=== PATIENT | female | born 1990 | race Caucasian/White ===

== ENCOUNTER 2017-06-21 20:41 | Emergency (ER) | payer SELFPAY ==
[2017-06-21 20:54] VITALS: BP 128/87
[2017-06-21] MEDS ORDERED: TYLENOL ONE (21:52)
[2017-06-21] MEDS ORDERED: TYLENOL PO ONE (21:56)
== END 2017-06-21 22:45 | disposition left against medical advice (07) ==
LOC: ED 20:41
DX: M54.2 Cervicalgia (principal); Z53.21 Procedure and treatment not carried out due to patient leaving prior to being seen by health care provider

== ENCOUNTER 2019-01-04 12:58 | Inpatient (IN) | payer SELFPAY ==
[2019-01-04] MEDS ORDERED: REGLAN IV ONE ×2 (13:56→15:57)
[2019-01-04] MEDS ORDERED: BICITRA PO ONE ×2 (13:56→15:57)
[2019-01-04] MEDS ORDERED: PEPCID IV ONE ×2 (13:56→15:57)
[2019-01-04] MEDS ORDERED: ANCEF/STERILE WATER 2 GM/20 ML 2 GM/20 ML SYRINGE IV NR ×2 (14:00→16:00)
[2019-01-04] MEDS ORDERED: LACTATED RINGERS 1,000 ML IV SCH ×3 (14:00→16:00)
[2019-01-04] MEDS ORDERED: PITOCin/NS 20 UNIT/1000ML DRIP 20 UNITS/1,000 ML BAG IV SCH ×3 (14:00→18:00)
--- NOTE | 2019-01-04 14:10 | History and Physical Report ---
History of Present Illness Date of examination: 01/04/19 Date of admission: 01/04/19 Chief complaint: Contractions, decreased movement. History of present illness: 28 year old female presents complaining of contractions since early this morning, vaginal spotting when she wipes, and decreased movement. Patient denies leaking of fluid. Patient has had a previous section in [place] (vertical skin scar) in 2012 of full term viable . Patient denies falls or abdominal trauma. Patient states pain occurs only with contractions and resolves between contractions. Patient has received care at [facility]. She brings records with her. LMP 04/07/18. EDC 01/12/19 (based on LMP and confirmed by 20 week, 3 day US). significant for the following: previous section (unknown uterine scar, C/S was done in [place] and skin scar is vertical); anemia (supplemented with iron); elevated 1 hour sugar test with one abnormal value on 3 hour OGTT. labs are as follows: O+, antibody screen negative, rubella immune, hepatitis B surface antigen negative, HIV negative, RPR nonreactive, chlamydia negative, gonorrhea negative, quad screen negative, 1 hour sugar test 168 (3 hr. OGTT: 80, 165, 164, 107), GBS negative. Past History Past Medical History: other (obesity) Past Surgical History: section FIRER LOW PRESSURE History: denies: abnormal PAP smear, chlamydia, gonorrhea, hepatitis B, hepatitis C, herpes, HIV, syphilis, trichomonas Family/Genetic History: diabetes, hypertension, other (hypercholesterolemia) Social history: , lives with family, full code. denies: smoking, alcohol abuse, prescription drug abuse, IV drug use - Obstetrical History Expected Date of Delivery: 01/12/19 Actual Gestation: 38 Week(s) 6 Day(s) : 3 Para: 1 Hx # Term Pregnancies: 1 Number of Pregnancies: 0 Spontaneous Abortions: 1 Induced : 0 Number of Living Children: 1 Medications and Allergies Allergies Allergy/AdvReac Type Severity Reaction Status Date / Time No Known Allergies Allergy Verified 06/21/17 22:09 Active Meds: Active Medications Lactated Ringer's (Lactated Ringers) 1,000 mls @ 999 mls/hr IV DIRECT DELVIS Last Admin: 01/04/19 13:30 Dose: 999 mls/hr Documented by: Oxytocin/Sodium Chloride (Pitocin/Ns 20 Unit/1000ml Drip) 20 units in 1,000 mls @ 0 mls/hr IV TITR DELVIS Lactated Ringer's (Lactated Ringers) 1,000 mls @ 2,250 mls/hr IV PREOP DELVIS Stop: 01/05/19 14:27 Cefazolin Sodium (Ancef/Sterile Water 2 Gm/20 Ml) 2 gm in 20 mls @ 80 mls/hr IV PREOP NR; Protocol Stop: 01/05/19 13:59 Review of Systems All systems: negative (contractions, vaginal spotting, decreased movement) - Vital Signs Vital signs: Vital Signs Temp Pulse Resp BP 98.7 F 94 H 18 157/96 01/04/19 13:08 01/04/19 13:08 01/04/19 13:08 01/04/19 13:08 Temp Pulse Resp BP Pulse Ox 98.7 F 94 H 18 157/96 01/04/19 13:08 01/04/19 13:13 01/04/19 13:08 01/04/19 13:13 - Physical Exam Cardiovascular: Regular rate, Normal S1, Normal S2 Lungs: Positive: Clear to auscultation Abdomen: Positive: normal appearance, soft, other (moderate contractions palpated). Negative: distention, tenderness, guarding, rigidity Genitourinary (Female): Positive: normal external genitalia Vagina: Positive: normal moisture Cervix: Positive: other (Exam by RN upon arrival: FT/50/-3) Uterus: Positive: enlarged Extremities: Positive: normal. Negative: tenderness, edema - Obstetrical FHR: category 1 Uterine Contraction Monitor Mode: External Cervical Dilatation: 0.5 (Exam by RN upon pt.'s arrival) Cervical Effacement Percentage: 50 station: -3 Uterine Contraction Pattern: Regular Uterine Contraction Intensity: Moderate Results All other labs normal. Assessment and Plan A: at 38 weeks, 6 days gestation. Regular contractions. Previous section (unknown scar, skin scar is vertical). Decreased movement. Elevated blood pressure. Obesity. P: Admit. Admission labs/PIH labs. Continuous EFM. Consulted with Dr. Gaytan re: this patient, her complaints of vaginal spotting, contractions and decreased movement, unknown scar from previous section. Dr. Gaytan states to admit patient and he will deliver baby by section today. Patient and nurses notified that Dr. Gaytan plans to deliver baby by section.
[2019-01-04 14:58] LABS: Basophils % (Auto) 0.5 % (0.0-1.8); Eosinophils # (Auto) 0.1 K/mm3 (0.0-0.4); Eosinophils % (Auto) 0.6 % (0.0-4.3); Hematocrit 33.7 % (30.3-42.9); Hemoglobin 11.4 gm/dl (10.1-14.3); Lymphocytes # (Auto) 1.5 K/mm3 (1.2-5.4); Lymphocytes % (Auto) 17.3 % (13.4-35.0); Mean Corpuscular HGB Conc 34 % (30-34); Mean Corpuscular Volume 84 fl (79-97); Monocytes # (Auto) 0.5 K/mm3 (0.0-0.8); Monocytes % (Auto) 5.2 % (0.0-7.3); Platelet Count 291 K/mm3 (140-440); Red Blood Count 4.01 M/mm3 (3.65-5.03); Red Cell Distribution Width 14.6 % (13.2-15.2)
[2019-01-04 15:07] LABS: Alanine Aminotransferase 10 units/L (7-56); Albumin 3.1 g/dL (3.9-5); BUN/Creatinine Ratio 16; Blood Urea Nitrogen 8 mg/dL (7-17); Hemolysis Index 1; Uric Acid 3.5 mg/dL (3.5-7.6)
[2019-01-04] MEDS ORDERED: PHENERGAN PR PRN (15:22)
[2019-01-04] MEDS ORDERED: NARCAN 0.4 MG/1 ML IV PRN ×2 (15:22→17:24)
[2019-01-04] MEDS ORDERED: DILAUDID IV PRN ×2 (15:22)
[2019-01-04] MEDS ORDERED: PHENERGAN PO PRN (15:22)
[2019-01-04] MEDS ORDERED: ZOFRAN IV PRN ×2 (15:22→17:24)
--- NOTE | 2019-01-04 15:23 | Anesthesia Consultation ---
Anesthesia Consult and Med Hx Date of service: 01/04/19 - Airway Anesthetic Teeth Evaluation: Good ROM Head & Neck: Adequate Mental/Hyoid Distance: Adequate Mallampati Class: Class II Intubation Access Assessment: Good - Pulmonary Exam CTA: Yes - Cardiac Exam Cardiac Exam: RRR - Pre-Operative Health Status ASA Pre-Surgery Classification: ASA2, Emergency Proposed Anesthetic Plan: Spinal - Pulmonary Hx Asthma: No - Cardiovascular System Hx Hypertension: No - Central Nervous System Hx Seizures: No Hx Psychiatric Problems: No - Endocrine Hx Renal Disease: No Hx Hypothyroidism: No Hx Hyperthyroidism: No - Hematic Hx Anemia: No Hx Sickle Cell Disease: No - Other Systems Hx Alcohol Use: No
--- NOTE | 2019-01-04 15:24 | Anesthesia Day of Surgery ---
Anesthesia Day of Surgery - Day of Surgery Patient Examined: Yes Patient H&P Reviewed: Yes Patient is NPO: No (10 am full meal)
[2019-01-04] MEDS ORDERED: ZOFRAN ONE (15:57)
[2019-01-04] MEDS ORDERED: DEXMEDETOMIDINE IV ONE (15:57)
[2019-01-04] MEDS ORDERED: fentaNYL-BUPIV 2 MCG/ML-0.125% 200 MCG/100 ML BAG EPIDURAL SCH (16:00)
[2019-01-04] MEDS ORDERED: SODIUM CHLORIDE FLUSH SYRINGE 10 ML IV NR ×2 (16:00→18:00)
[2019-01-04] MEDS ORDERED: PHENYLEPHRINE/NS Syringe 1,000 MCG/10 ML IV ONE (16:35)
[2019-01-04] MEDS ORDERED: TORADOL ONE (16:43)
[2019-01-04] MEDS ORDERED: BENADRYL ONE (16:43)
[2019-01-04] MEDS ORDERED: DILAUDID ONE (16:52)
[2019-01-04] MEDS ORDERED: NACL 0.9% IR ONE (17:24)
[2019-01-04] MEDS ORDERED: TUCKS PAD TP PRN (17:24)
[2019-01-04] MEDS ORDERED: LANSINOH TP PRN (17:24)
[2019-01-04] MEDS ORDERED: WATER FOR IRRIG STERILE IR ONE (17:24)
[2019-01-04] MEDS ORDERED: TYLENOL PO PRN (17:24)
[2019-01-04] MEDS ORDERED: MORPHINE IV PRN (17:24)
--- NOTE | 2019-01-04 17:34 | Operative Report ---
Operative Report Operative Report: Date of surgery: 01/04/2019 Preoperative diagnoses: Term , previous section, early labor, decreased movements Postoperative diagnoses: The same. Plus Pea soup meconium Operation: Lower segment transverse delivery Surgeon:Jeanine Gaytan MD Livestock Rancher: Gui Hendricks CRNA Anesthesia: Spinal block Estimated blood loss: 500 mL Complications: None Findings: There was a live baby girl in cephalic presentation with thick pea soup meconium stained amniotic fluid, scores were 8 and 9. Baby weighed 8 lbs. 9 oz. There were no adhesions seen within the lower abdomen. Procedure in detail: The patient was taken to the operating room and given a spinal block. Patient was placed in the straight supine position and a Hernandes catheter was inserted. The patient was prepped in the abdomen. The drapes were placed. A timeout was done. With the go ahead from the metal casting trades worker, a sub-umbilical midline incision was made over a previously existing scar. This incision was carried across the subcutaneous layer to the fascia which was also divided longitudinally. The recti abdominis muscle flaps were stripped from the fascia using a combination of blunt and sharp dissections. The muscles were in the midline to gain access to the anterior parietal peritoneum which was divided after excluding any underlying viscera. The access to the peritoneal cavity was then widened by manual stretching. The bladder blade was applied. The utero vesicle peritoneal flap was divided transversely allowing the bladder to be displaced caudally. The uterine incision was placed in the lower segment transversely. The uterine incision was carried to the decidual layer. The uterine incision was extended on both sides using the bandage scissors. The amniotic sac was ruptured with clear fluid. The head was lifted out of the false maternal pelvis and delivered through the incision using fundal pressure. The airways were bulb suctioned beginning with the mouth. Continuing fundal pressure combined with traction on the mandibular processes of the jaw delivered the rest of the baby. The umbilical cord was double clamped and divided. The baby was carefully transferred to the pediatric team. The placenta was manually removed from the uterine cavity. The uterine cavity was explored and was empty of any placental remnants. The uterine incision was repaired in 2 layers with #1 Vicryl. The surgical line on the uterus was hemostatic. Blood and clots were cleared from the peritoneal cavity. The anterior parietal peritoneum was repaired with #1 Vicryl. The fascia was repaired with #1 Vicryl. The subcutaneous layer was made hemostatic using the Bovie before the skin was closed subcuticularly with 4-0 Vicryl. There were no complications. The estimated blood loss was 500 mL. All sponges and instrument counts were correct. Patient was safely transferred to the recovery room.
[2019-01-04] MEDS: TORADOL IV PRN (20:38)
[2019-01-04 20:42] LABS: Bilirubin,Urine NEG (Negative); Blood,Urine SM (Negative); Color,Urine Yellow (Yellow); Mucus,Urine FEW /HPF; Urobilinogen,Urine < 2.0 mg/dL (<2.0)
[2019-01-04 21:04] LABS: Amphetamine Screen,Urine PRESUMPTIVE NEGATIVE; Benzodiazepines Screen,Urine PRESUMPTIVE NEGATIVE; Cannabinoid Screen,Urine PRESUMPTIVE NEGATIVE; Cocaine Screen,Urine PRESUMPTIVE NEGATIVE; Methadone Screen,Urine PRESUMPTIVE NEGATIVE; Opiate Screen,Urine PRESUMPTIVE NEGATIVE
[2019-01-04] MEDS: ANCEF/NS 1 GM/50 ML 1 GM/50 ML BAG IV SCH (22:15)
[2019-01-05] MEDS: TORADOL IV PRN ×2 (06:40→17:50)
[2019-01-05] MEDS: ANCEF/NS 1 GM/50 ML 1 GM/50 ML BAG IV SCH (06:51)
--- NOTE | 2019-01-05 09:58 | Progress Note ---
Assessment and Plan - Patient Problems (1) S/P repeat low transverse Current Visit: Yes Status: Acute Plan to address problem: POD 1 - poor pain control Continue routine postop orders Discontinue continuous IVF Use of incentive spirometer and ambulation encouraged, as tolerated Abdominal binder ordered Anticipate discharge in 24 to 48 hours Subjective - Subjective Date of service: 01/05/19 Principal diagnosis: POD #1; s/p Repeat LTCS Interval history: see H&P and Operative Report Patient reports: appetite normal, voiding normally, flatus, pain poorly controlled, ambulating normally, other (reports right rib pain upon taking deep breaths; has not used incentive spirometer since she was transfered to ), no dizzy ambulation : doing well Objective - Vital Signs Latest vital signs: Vital Signs Temp Pulse Resp BP BP Pulse Ox 01/05/19 07:22 98.7 F 82 18 102/67 01/05/19 04:43 98.2 F 94 H 20 95/61 96 01/04/19 23:35 98.2 F 97 H 20 98/69 97 01/04/19 19:45 98.3 F 78 16 119/77 99 01/04/19 16:03 96 H 98 01/04/19 15:58 99 H 98 01/04/19 15:53 97 H 98 01/04/19 15:48 93 H 97 01/04/19 15:43 93 H 97 01/04/19 15:38 99 H 100 01/04/19 15:33 90 100 01/04/19 15:28 92 H 100 01/04/19 15:21 93 H 100 01/04/19 14:56 90 150/85 01/04/19 13:13 94 H 157/96 01/04/19 13:08 98.7 F 94 H 18 157/96 Intake and Output 01/04/19 01/05/19 01/05/19 23:59 07:59 15:59 Intake Total 50 840 Output Total 600 420 Balance 50 240 -420 Intake: IV 50 ANCEF/NS 1 GM/50 ML 1 gm 50 In 50 ml @ 100 mls/hr IV Q8H [facility] Rx#:[id number] Oral 840 Output: Urine 600 420 Indwelling Catheter 600 420 Other: Total, Intake Amount 480 Total, Output Amount 600 420 Estimated Blood Loss 500 - Exam Cardiovascular: Present: Regular rate Lungs: Present: Clear to auscultation Abdomen: Present: normal appearance, soft Vulva: both: normal Uterus: Present: normal, firm, fundal height at umbilicus Extremities: Present: normal Incision: Present: normal, dry, intact, dressed Comments: scant lochia - Labs Labs: Abnormal lab results 01/04/19 01/04/19 01/04/19 Range/Units 14:25 14:25 20:30 Seg Neutrophils % 76.4 H (40.0-70.0) % Carbon Dioxide 19 L (22-30) mmol/L Creatinine 0.5 L (0.7-1.2) mg/dL Alkaline Phosphatase 138 H (35-129) units/L Albumin 3.1 L (3.9-5) g/dL Urine WBC (Auto) 27.0 H (0.0-6.0) /HPF
[2019-01-05] MEDS: PRENATAL VITAMIN PO SCH (10:03)
[2019-01-05] MEDS: FEOSOL PO SCH (10:03)
[2019-01-05] MEDS: NORCO 5/325 PO PRN ×3 (10:03→21:44)
[2019-01-05 10:18] LABS: Hematocrit 33.9 % (30.3-42.9); Hemoglobin 11.2 gm/dl (10.1-14.3)
[2019-01-06] MEDS: TORADOL IV PRN (02:44)
[2019-01-06] MEDS: IBUPROFEN PO PRN ×3 (02:47→21:06)
[2019-01-06] MEDS ORDERED: BOOSTRIX IM ONE (06:00)
--- NOTE | 2019-01-06 10:13 | Progress Note ---
Assessment and Plan - Patient Problems (1) S/P repeat low transverse Current Visit: Yes Status: Acute Plan to address problem: Continue routine PP orders Keep incision dry and intact Anticipate d/c home in 24 hrs Subjective - Subjective Date of service: 01/06/19 Principal diagnosis: POD #2; s/p Repeat LTCS Interval history: See admission H & P; OB operative summary and PP progress notes Patient reports: appetite normal, voiding normally, pain well controlled (with medications), flatus, ambulating normally, no bowel movement [place]: doing well, bottle feeding Objective - Vital Signs Latest vital signs: Vital Signs Temp Pulse Resp BP BP Pulse Ox 01/06/19 08:28 98.0 F 77 16 114/79 97 01/06/19 00:51 98.2 F 85 18 121/77 97 01/05/19 16:13 98.9 F 79 18 121/75 01/05/19 12:28 98.2 F 82 18 115/73 Intake and Output 01/05/19 01/06/19 01/06/19 23:59 07:59 15:59 Intake Total 840 480 Balance 840 480 Intake: Oral 480 Intake, Free Water 360 480 Other: Total, Intake Amount 480 # Voids Void 2 1 - Exam Breasts: Present: normal Cardiovascular: Present: Normal S1 Lungs: Present: Normal air movement Abdomen: Present: soft, tenderness Uterus: Present: firm, fundal height below umbilicus (U-1) Extremities: Present: normal Deep Tendon Reflex Grade: Normal +2 Incision: Present: dressed (no shadow drainage or bleeding noted)
[2019-01-06] MEDS: FEOSOL PO SCH (10:40)
[2019-01-06] MEDS: PRENATAL VITAMIN PO SCH (10:40)
[2019-01-06] MEDS: NORCO 5/325 PO PRN ×2 (11:22→23:41)
[2019-01-07] MEDS: IBUPROFEN PO PRN ×2 (05:56→14:13)
[2019-01-07] MEDS: FEOSOL PO SCH (09:54)
[2019-01-07] MEDS: PRENATAL VITAMIN PO SCH (09:54)
--- NOTE | 2019-01-07 10:47 | Progress Note ---
Assessment and Plan A: POD #3 Stable P: Follow Routine PostOp Orders D/C home today RTO in One Week Subjective - Subjective Date of service: 01/07/19 Principal diagnosis: POD #2; s/p Repeat LTCS Patient reports: appetite normal, voiding normally, pain well controlled, flatus, bowel movement, ambulating normally : doing well, bottle feeding Objective - Vital Signs Latest vital signs: Vital Signs Temp Pulse Resp BP Pulse Ox 01/07/19 08:19 97.8 F 78 18 110/69 96 01/07/19 05:56 20 01/07/19 01:01 98.1 F 79 20 103/64 96 01/06/19 23:41 20 01/06/19 21:06 20 01/06/19 16:51 97.7 F 73 16 112/80 97 01/06/19 12:39 18 Intake and Output 01/06/19 01/07/19 01/07/19 22:59 06:59 14:59 Intake Total 360 Balance 360 Intake: Intake, Free Water 360 Other: # Voids Void 3 2 - Exam Breasts: Present: normal Cardiovascular: Present: Regular rate Lungs: Present: Clear to auscultation, Normal air movement Abdomen: Present: normal appearance, soft, normal bowel sounds Uterus: Present: normal, firm, fundal height at umbilicus Extremities: Present: normal Incision: Present: normal, dry, intact, other (verical)
--- NOTE | 2019-01-07 10:48 | Discharge Summary ---
Providers - Providers Date of Admission: 01/04/19 15:47 Date of discharge: 01/07/19 Attending physician: MAYCO COTTO MD Primary care physician: PHYSICS TUTOR Hospitalization Reason for admission: section Delivery: Procedure: vertical Episiotomy: none Laceration: none Incision: normal, dry, intact Other procedures: none complications: none Discharge diagnosis: IUP at term delivered baby: female Condition at discharge: Good Disposition: DC-01 TO HOME OR SELFCARE Plan - Discharge Medications Prescriptions: HYDROcodone/APAP 5-325 [[place] 5/325] 1 - 2 each PO Q4HR PRN #30 tablet PRN Reason: Pain - Provider Discharge Summary Activity: routine, no sex for 6 weeks, no heavy lifting 4 weeks, no strenuous exercise Diet: routine Instructions: routine Additional instructions: [] Smoking cessation referral if applicable(refer to patient education folder for contact #) [] Refer to [facility] Booklet Call your doctor immediately for: * Fever > 100.5 * Heavy vaginal bleeding ( >1 pad per hour) * Severe persistent headache * Shortness of breath * Reddened, hot, painful area to leg or breast * Drainage or odor from incision. * Keep incision clean and dry at all times and follow doctor's instructions regarding bathing/showering - Follow up plan Follow up: PRIMARY CAREMD [Primary Care Provider] - 7 Days
[2019-01-07 15:11] VITALS: BP 124/76
== END 2019-01-07 14:50 | disposition home or self-care (01) | DRG 788 ==
LOC: TRG 12:58 → APU 15:47 → OB 19:45
PROVIDERS: ADMIT Obstetrics & Gynecology; ATTEND Obstetrics & Gynecology
PROC: 10D00Z1 Extraction of Products of Conception, Low, Open Approach (ICD-10-PCS; principal; 2019-01-04)
PROC: 3E0234Z Introduction of Serum, Toxoid and Vaccine into Muscle, Percutaneous Approach (ICD-10-PCS; 2019-01-06)
DX: O34.211 Maternal care for low transverse scar from previous cesarean delivery (principal); O99.214 Obesity complicating childbirth; O36.8130 Decreased fetal movements, third trimester, not applicable or unspecified; P03.82 Meconium passage during delivery; Z3A.38 38 weeks gestation of pregnancy; Z37.0 Single live birth; Z82.49 Family history of ischemic heart disease and other diseases of the circulatory system; Z83.3 Family history of diabetes mellitus; Z23 Encounter for immunization
CPT/HCPCS: 36415; 80053; 80307; 81001; 83615; 84550; 85014; 85018; 85025; 86850; 86900; 86901; 87086; 88307; 90715; G0378; J0690; J1170; J1200; J1885; J2270; J2370; J2405; J2590; J2765; J3490; J7120

== ENCOUNTER 2021-01-28 09:43 | Outpatient (CLI) | payer OTHER ==
[2021-01-28 10:13] VITALS: BP 106/65
[2021-01-28] MEDS ORDERED: LACTATED RINGERS 500 ML IV ONE (11:53)
--- NOTE | 2021-01-28 12:10 | Ultrasound Report ---
ULTRASOUND OBSTETRIC LIMITED ULTRASOUND BIOPHYSICAL PROFILE INDICATION / CLINICAL INFORMATION: DECREASED MOVEMENT - BPP. Clinical Gestational Age (GA) in weeks, days: 31, 3 TECHNIQUE: Transabdominal. COMPARISON: None available. FINDINGS: BREATHING MOVEMENT = 2 GROSS BODY MOVEMENT = 2 TONE = 2 QUALITATIVE AMNIOTIC FLUID VOLUME = 2 TOTAL BIOPHYSICAL SCORE = 8/8 HEART RATE (beats per minute): 145 AMNIOTIC FLUID INDEX (cm) = 19.4 (normal = 7-24 cm) PRESENTATION: Cephalic. ADDITIONAL FINDINGS: None. IMPRESSION: 1. Biophysical Score = 8/8 Signer Name: Allan Nelson DO Signed: 01/28/2021 12:05 PM Workstation Name: [id number]
== END 2021-01-28 12:00 | disposition home or self-care (01) ==
LOC: TRG 09:43 → APU 09:46 → TRG 12:00
PROVIDERS: ATTEND Obstetrics & Gynecology
DX: Z34.93 Encounter for supervision of normal pregnancy, unspecified, third trimester (principal); Z3A.31 31 weeks gestation of pregnancy
CPT/HCPCS: 59025; 76815; 76819

== ENCOUNTER 2021-03-29 10:48 | Inpatient (IN) | payer OTHER ==
[2021-03-29 11:52] LABS: Bacteria,Urine 1+ /HPF (Negative); Bilirubin,Urine NEG (Negative); Blood,Urine NEG (Negative); Color,Urine Amber (Yellow); Mucus,Urine FEW /HPF; Urobilinogen,Urine < 2.0 mg/dL (<2.0)
[2021-03-29 12:18] LABS: Hematocrit 37.1 % (30.3-42.9); Hemoglobin 12.1 gm/dl (10.1-14.3); Mean Corpuscular HGB Conc 33 % (30-34); Mean Corpuscular Volume 84 fl (79-97); Red Blood Count 4.42 M/mm3 (3.65-5.03); Red Cell Distribution Width 15.4 % (13.2-15.2)
[2021-03-29 12:20] LABS: Platelet Count 181 K/mm3 (140-440)
[2021-03-29 12:40] LABS: Alanine Aminotransferase 10 units/L (7-56); Uric Acid 4.9 mg/dL (3.5-7.6)
--- NOTE | 2021-03-29 14:15 | History and Physical Report ---
History of Present Illness Date of examination: 03/29/21 Date of admission: 03/29/21 10:48 Chief complaint: sent from [facility] with headache and elevated BP History of present illness: at 39.0 wks by EDC 04/05/21; care at [facility] and sent here with headache and proteinuria and elevated BP. Pt admits to headache, movement. Denies LOF, VB and contractions. Pt desires midline incision repeated for this delivery. labs with O positive, neg screen, RPR non-reactive, HepBsAg neg, Rubella immune, Ucx with Ecoli treated this preg in August 2020, HIV neg and GBS+. Abnormal 1hrgtt and normal 3hrgtt. Past History Past Medical History: other (morbid obesity) Past Surgical History: section (x2), other (recurrent UTI treated once this preg and now with positive nitrites) Social history: no significant social history - Obstetrical History : 4 Medications and Allergies Allergies Allergy/AdvReac Type Severity Reaction Status Date / Time No Known Allergies Allergy Verified 06/21/17 22:09 Home Medications Medication Instructions Recorded Confirmed Last Taken Type HYDROcodone/APAP 5-325 [[place] 1 - 2 each PO Q4HR PRN #30 tablet 01/04/19 Unknown Rx 5/325] Review of Systems All systems: negative (neg) - Vital Signs Vital signs: Vital Signs Pulse BP 96 H 130/89 03/29/21 11:16 03/29/21 11:16 Temp Pulse Resp BP Pulse Ox 98.2 F 94 H 20 129/75 98 03/29/21 11:28 03/29/21 14:12 03/29/21 11:28 03/29/21 14:01 03/29/21 14:12 - Physical Exam Breasts: Positive: deferred Cardiovascular: Normal S1 Lungs: Positive: Normal air movement Abdomen: Positive: soft (obese, non-tender) Genitourinary (Female): Positive: normal external genitalia Vulva: both: normal Vagina: Positive: normal moisture - Obstetrical FHR: category 1 Uterine Contraction Monitor Mode: External Cervical Dilatation: 50 station: -4 Uterine Contraction Pattern: Irregular Uterine Contraction Intensity: Mild Results Result Diagrams: 03/29/21 Unknown 03/29/21 11:23 Abnormal lab results 03/29/21 03/29/21 03/29/21 Range/Units 11:23 Unknown Unknown MCH 27 L (28-32) pg RDW 15.4 H (13.2-15.2) % Creatinine 0.4 L (0.6-1.2) mg/dL Lactate Dehydrogenase 287 H (91-180) units/L Urine WBC (Auto) 7.0 H (0.0-6.0) /HPF All other labs normal. Assessment and Plan Term IUP at 39wks with previous c/section x2, gestational HTN, UTI currently 1. Admit for repeat section 2. PIH labs seen 3. Will treat UTI post op 4. Discussed the risks, benefits and alternatives of section and wound dehiscence with midline. pt told that I recommend pfannenstiel approach and she agrees. All questions encouraged and answered
[2021-03-29] MEDS ORDERED: OXYTOCIN DRIP 30 UNITS/500 ML BAG IV SCH (15:00)
[2021-03-29] MEDS ORDERED: FAMOTIDINE 20 MG/2 ML INJ IV ONE (15:13)
[2021-03-29] MEDS ORDERED: METOCLOPRAMIDE 10 MG/2 ML INJ IV ONE (15:13)
[2021-03-29] MEDS ORDERED: BICITRA ORAL LIQD 30ML PO ONE (15:13)
[2021-03-29] MEDS ORDERED: ACETAMINOPHEN 500 MG TAB ONE (21:32)
--- NOTE | 2021-03-29 21:42 | Event Note ---
Date: 03/29/21 LATE ENTRY: pt no longer has headache and is hungry. Will allow to eat and partner brought pt food with OR not available at this time and 2 more cases ahead of her. Pt already has c/section scheduled for tomorrow and is ok waiting until that time. FHR category I, pelvic with cervix close and occasional irregular contractions. Sign out given to Dr. Bowles at 8pm. All questions encourage and answered
[2021-03-29 22:26] LABS: Creatinine,Urine 241.5 mg/dL (0.1-20.0)
[2021-03-30] MEDS: ceFAZolin/NS 1 GM/50 ML 1 GM/50 ML BAG IV SCH ×2 (03:14→05:15)
[2021-03-30] MEDS ORDERED: ceFAZolin/Water 2 GM/20 ML 2 GM/20 ML SYRINGE IV ONE (07:27)
[2021-03-30] MEDS ORDERED: FAMOTIDINE 20 MG/2 ML INJ IV ONE (07:27)
[2021-03-30] MEDS ORDERED: BICITRA ORAL LIQD 30ML ONE (07:28)
[2021-03-30] MEDS ORDERED: METOCLOPRAMIDE 10 MG/2 ML INJ ONE (07:28)
--- NOTE | 2021-03-30 07:33 | Anesthesia Day of Surgery ---
Anesthesia Day of Surgery - Day of Surgery Patient Examined: Yes Patient H&P Reviewed: Yes Patient is NPO: Yes Beta Blockers: No Cardiac Clearance: No Pulmonary Clearance: No Gopi's Test: Negative
--- NOTE | 2021-03-30 07:37 | Anesthesia Consultation ---
Anesthesia Consult and Med Hx Date of service: 03/30/21 - Airway Anesthetic Teeth Evaluation: Poor, Caps ROM Head & Neck: Adequate Mental/Hyoid Distance: Adequate Mallampati Class: Class II Intubation Access Assessment: Probably Good - Pulmonary Exam CTA: Yes - Cardiac Exam Cardiac Exam: RRR - Pre-Operative Health Status ASA Pre-Surgery Classification: ASA3 Proposed Anesthetic Plan: Epidural, Spinal - Pre-Anesthesia Comment Pre-Anesthesia Comments: csection x2 No Anesthesia Complications - Pulmonary Hx Smoking: No (Former smoker) Hx Asthma: No Hx Respiratory Symptoms: No SOB: No COPD: No Home Oxygen Therapy: No Hx Pneumonia: No Hx Sleep Apnea: No - Cardiovascular System Hx Hypertension: Yes Hx Coronary Artery Disease: No Hx Heart Attack/AMI: No Hx Angina: No Hx Percutaneous Transluminal Coronary Angioplasty (PTCA): No Hx Cardia Arrhythmia: No Hx Pacemaker: No Hx Internal Defibrillator: No Hx Valvular Heart Disease: No Hx Heart Murmur: No Hx Peripheral Vascular Disease: No - Central Nervous System Hx Neuromuscular Disorder: No Hx Seizures: No CVA: No Hx Back Pain: Yes Hx Psychiatric Problems: No - Gastrointestinal Hx Ulcer: No Hx Gastroesophageal Reflux Disease: No - Endocrine Hx Renal Disease: No Hx End Stage Renal Disease: No Hx Cirrhosis: No Hx Liver Disease: No Hx Insulin Dependent Diabetes: No Hx Non-Insulin Dependent Diabetes: No Hx Thyroid Disease: No Hx Hypothyroidism: No Hx Hyperthyroidism: No - Hematic Hx Anemia: No Hx Sickle Cell Disease: No - Other Systems Hx Alcohol Use: No Hx Substance Use: No Hx Cancer: No Hx Obesity: Yes
[2021-03-30] MEDS: LACTATED RINGERS 1,000 ML IV SCH ×2 (07:40→08:21)
[2021-03-30] MEDS ORDERED: LIDOCAINE MPF (2%) 20 MG/1 ML VIAL 5 ML ONE (08:32)
[2021-03-30] MEDS ORDERED: ONDANSETRON 4 MG/2 ML INJ ONE ×2 (08:32)
[2021-03-30] MEDS ORDERED: BUPIVACAINE /DEX-WATER 0.75% (2 ML) AMPULE INFILTRATI ONE (08:48)
[2021-03-30] MEDS ORDERED: LACTATED RINGERS 1,000 ML ONE ×2 (09:12→10:47)
[2021-03-30] MEDS ORDERED: dexAMETHasone 20 MG/5 ML VIAL ONE (09:53)
[2021-03-30] MEDS ORDERED: BUPIVACAINE/PF (0.25%) 2.5 MG/ML 30 ML VIAL INFILTRATI ONE ×2 (09:53)
[2021-03-30] MEDS ORDERED: BUPIVACAINE/PF (0.5%) 5 MG/1 ML 30 ML VIAL INFILTRATI ONE (10:30)
[2021-03-30] MEDS ORDERED: KETOROLAC 30 MG/1 ML INJ ONE (10:46)
--- NOTE | 2021-03-30 11:35 | Procedure Note ---
OB Delivery Note - Delivery Date of Delivery: 03/30/21 Surgeon: DIANE ADORNO Estimated blood loss: other (506cc) - Section Preop diagnosis: repeat , other (Gestational HTN, morbid obesity, term ) Postop diagnosis: same section procedure: repeat low transverse Disposition: floor Complications: none Narrative: Date: 03/30/21 Surgeon: Diane Adorno MD Preop Dx: IUP at 39.1wks, previous midline scars for c/section x2; Gestational HTN; Morbid obesity Postop Dx: same adn pt in labor with thin lower uterine segment Procedure : Repeat Low Transverse section Anesthesia: Spinal Intake: 2500cc crystalloid Output: 250cc EBL: 506cc clear After the risks, benefits and alternatives of procedure discussed, patient signed consents and was taken to the operating room. Pt was given epidural anesthesia. After same was adequate, patient was prepped and draped in the usual sterile fashion. Hernandes catheter in place and draining concentrated scant urine that cleared at the end of surgery most likely due to dehydration. Pt was given prophylactic antibiotic per protocol and time out was done Pfannenstiel skin incision was made and taken sharply to the fascia and the incision extended using electrocautery. Superior edge of the fascia was grasped with mendel clamps and the rectus muscle using blunt dissection and also using electrocautery. Lower portion of the fascia also with electrocautery. Rectus muscle in the midline and Peritoneal cavity entered sharply, and then lysis of intraabdominal adhesions and then extended with good visualization of the bladder. Laci retractor placed without difficulty. The bladder flap was created sharply using metzenbaum scissors. Lower uterine segment very thin and laboring then entered transversely and amniotic sac entered using allys clamps. Uterine incision extended using band age scissors. delivered, bulb suctioned, cord clamped and baby handed to waiting pediatricians. Placenta then delivered completely and uterine cavity cleared of all clots and debri. The uterus was not exteriorized and closed in 2 layers using 0-monocryl suture in a running locked fashion and then an additional figure of 8 sutures for imbrication. Surgicel powder used and Excellent hemostasis noted. The gutters were cleared of clots and debri and anterior peritoneum closed with the rectus muscle using 0-vicryl suture in a continous fashion. Rectus fascia closed with 0-vicryl suture in a running fashion and subcutaneous tissue copiously irrigated with normal saline and re-approximated using 3-0 vicryl suture in a subcutaneous fashion. Excellent hemostasis remains. The skin was closed with 4-0 monocryl suture and steristrips and 2 areas with dermabond and then with pressure dressing. Sponge, lap, instrument and needle counts x2 were normal. Patient tolerated the procedure well and was taken to recovery room stable. Findings: Viable male , APGARS 9/9 and weight 4250g. Normal uterus, Left tube with small cyst of morgani, normal right tube and bilateral ovaries. - Infant A at 1 minute: 9 at 5 minutes: 9 Gender: Male (wt 4250g; clear amniotic fluid)
--- NOTE | 2021-03-30 11:44 | Progress Note ---
Spinal Anesthesia Block - Spinal Anesthesia Block Start Time: 08:39 Stop Time: 08:45 Performed by:: JU YOST Procedure: Patient placed in sitting position with monitors applied. Timeout performed immediately before start of procedure. Prep/drape in usual sterile fashion. Skin localized 3 mL 1% lidocaine at L[3]-L[4] interspace. 17-gauge Touhy epidural needle advanced to MIGN[place] with saline at [8] cm. No blood/CSF noted via epidural needle. 26g spinal needle advanced into intrathecal space until clear, free flowing CSF noted. 1.4ml 0.75% hyperbaric bupivacaine + 10mcg Precedex injected into intrathecal space. Spinal needle removed and epidural catheter advanced to [12] cm. Negative aspiration for blood and CSF via catheter, negative response to test dose 3 ml 1.5% lidocaine w/ epi. Sterile dressing applied followed by tape reinforcement. Patient tolerated procedure well. No immediate complications noted.
--- NOTE | 2021-03-30 11:45 | Progress Note ---
Regional Anesthesia Block - Regional Anesthesia Block Start Time: :23 Stop Time: :30 Performed By:: JU YOST Procedure: Patient consented for TAP block for post surgical pain management. Patient identified, monitors placed, and time out performed. TAP identified bilaterally via ultrasound. Skin prepped bilaterally with [chlorhexidine] and [22g stimuplex] needle advanced to the TAP. [Marcaine 0.25% 30ml] injected under ultrasound guidance on the [left] side. [Marcaine 0.25% 30ml] injected under ultrasound guidance on the [right] side. Negative aspiration every 5mL, No change in heart rate or rhythm. Patient tolerated the procedure well. No apparent complications seen.
[2021-03-30] MEDS ORDERED: miSOPROStol 200 MCG TAB PR ONE (13:00)
[2021-03-30] MEDS ORDERED: NALOXONE 0.4 MG/1 ML INJ IV PRN (14:21)
[2021-03-30] MEDS ORDERED: MORPHINE 4 MG/1 ML INJ IV PRN (14:21)
[2021-03-30] MEDS ORDERED: OXYTOCIN DRIP 30 UNITS/500 ML BAG IV SCH (14:21)
[2021-03-30] MEDS ORDERED: MAGNESIUM HYDROXIDE (MOM) ORAL LIQD UDC PO PRN (14:21)
[2021-03-30] MEDS ORDERED: IBUPROFEN 600 MG TAB PO PRN (14:21)
[2021-03-30] MEDS ORDERED: ACETAMINOPHEN 325 MG TAB PO PRN (14:21)
[2021-03-30] MEDS ORDERED: ONDANSETRON 4 MG/2 ML INJ IV PRN (14:21)
[2021-03-30] MEDS ORDERED: IBUPROFEN 800 MG TAB PO PRN (14:21)
[2021-03-30] MEDS ORDERED: PROMETHAZINE 25 MG RECT SUPP PR PRN (14:21)
[2021-03-30] MEDS ORDERED: HYDROCORTISONE 25 MG RECTAL SUPP PR PRN (14:21)
[2021-03-30] MEDS ORDERED: SIMETHICONE 80 MG CHEW TAB PO PRN (14:21)
[2021-03-30] MEDS ORDERED: LANOLIN/ZINC/DIMETHICONE (LANSINOH) 7 GM TP PRN (14:21)
[2021-03-30] MEDS ORDERED: SENNOSIDES 8.6 MG TAB PO PRN (14:21)
[2021-03-30] MEDS ORDERED: WITCH HAZEL/ GLYCERIN PAD TP PRN (14:21)
--- NOTE | 2021-03-30 17:13 | Post Anesthesia Evaluation ---
- Post Anesthesia Evaluation Patient Participated: Yes Airway Patent: Yes Stable Respiratory Function: Yes Nausea/Vomiting: No Temp > 96.8F: Yes Pain Manageable: Yes Adequeate Hydration: Yes Anesthesia Complications: No Block Receding Appropriately: Yes Patient on Ventilator: No
[2021-03-30] MEDS ORDERED: D5W/LACTATED RINGERS 1,000 ML IV SCH (20:00)
[2021-03-31 00:47] LABS: Hematocrit 33.1 % (30.3-42.9); Hemoglobin 10.9 gm/dl (10.1-14.3)
[2021-03-31] MEDS: oxyCODONE /ACETAMINOPHEN 5-325MG TAB PO PRN ×4 (02:23→21:00)
[2021-03-31] MEDS: FERROUS SULFATE 325 MG TAB PO SCH (10:31)
[2021-03-31] MEDS: PRENATAL VIT27-FE FUMARATE-FOLIC ACID VIT TAB PO SCH (10:32)
--- NOTE | 2021-03-31 11:15 | Progress Note ---
Assessment and Plan A: /postop day 1 S/P repeat section. UTI. Gestational hypertension. Obesity. P: Rocephin 1 gram IV every 24 hours. Continue Labetalol 200 mg po BID. Encouraged patient to ambulate. Continue routine /postop care. Subjective - Subjective Date of service: 03/31/21 Principal diagnosis: /postop day 1 S/P repeat section Interval history: Urine culture growing gram negative es (sensitivity pending). Patient reports: appetite normal, voiding normally, pain well controlled, flatus, ambulating normally, no dizzy ambulation, no nauseated : doing well Objective - Vital Signs Latest vital signs: Vital Signs Temp Pulse Resp BP BP Pulse Ox Pulse Ox 03/31/21 09:04 20 03/31/21 08:45 100 03/31/21 08:32 97.7 F 77 18 129/83 99 03/31/21 06:26 97.7 F 73 18 140/73 97 03/31/21 03:23 18 03/31/21 02:23 20 03/31/21 02:17 98.1 F 77 24 137/79 98 03/30/21 23:00 18 03/30/21 22:30 20 03/30/21 20:06 79 149/83 100 03/30/21 20:01 99.5 F 83 18 149/83 99 03/30/21 15:21 98.2 F 77 18 161/96 149/93 96 03/30/21 13:35 100 Intake and Output 03/30/21 03/31/21 03/31/21 23:59 07:59 15:59 Intake Total 700 240 240 Output Total 700 1000 350 Balance 0 -760 -110 Intake: IV 100 ceFAZolin 2 GM In NaCl 0. 100 9% 100 ml @ 200 mls/hr IV Q8H [facility] Rx#:[id number] Oral 360 240 Intake, Free Water 240 240 Output: Urine 700 1000 350 Indwelling Catheter 700 Void 1000 350 Other: Total, Intake Amount 360 240 Total, Output Amount 700 700 350 # Voids Void 1 1 - Exam Cardiovascular: Present: Regular rate, No murmurs Lungs: Present: Clear to auscultation Abdomen: Present: normal appearance, soft, normal bowel sounds. Absent: distention, tenderness, guarding, rigidity Uterus: Present: normal, firm, fundal height below umbilicus. Absent: bogginess, tenderness Extremities: Present: edema (mild bilateral pedal edema). Absent: tenderness Incision: Present: dry, dressed
[2021-03-31] MEDS ORDERED: cefTRIAXone/NS 1 GM/50 ML 1 GM/50 ML BAG IV SCH (12:00)
[2021-04-01] MEDS: oxyCODONE /ACETAMINOPHEN 5-325MG TAB PO PRN ×3 (05:00→22:00)
[2021-04-01] MEDS: PRENATAL VIT27-FE FUMARATE-FOLIC ACID VIT TAB PO SCH (09:34)
[2021-04-01] MEDS: FERROUS SULFATE 325 MG TAB PO SCH (09:34)
--- NOTE | 2021-04-01 11:34 | Progress Note ---
Subjective - Subjective Date of service: 04/01/21 Principal diagnosis: /postop day 2 S/P repeat section Interval history: Continue routine postop care incision c/d/i DC home tomorrow Jeanine Coffey MD Patient reports: appetite normal, voiding normally, pain well controlled, ambulating normally [place]: doing well Objective - Vital Signs Latest vital signs: Vital Signs Temp Pulse Resp BP BP Pulse Ox Pulse Ox 04/01/21 08:35 97.9 F 70 140/94 04/01/21 08:32 97.9 F 79 20 137/86 100 04/01/21 06:00 18 04/01/21 05:00 18 04/01/21 00:04 98.2 F 80 20 124/84 97 03/31/21 22:22 98.0 F 78 18 127/88 96 03/31/21 22:00 79 18 127/88 03/31/21 21:00 18 03/31/21 20:00 98 03/31/21 16:30 98 03/31/21 15:50 98.2 F 81 18 121/85 97 03/31/21 15:24 20 Intake and Output 03/31/21 04/01/21 04/01/21 23:59 07:59 15:59 Intake Total 240 Balance 240 Intake: Oral 240 Other: Total, Intake Amount 240 # Voids Void 1 - Labs Labs: Abnormal lab results 03/31/21 Range/Units 09:35 Coronavirus (PCR) Positive A (Negative)
--- NOTE | 2021-04-01 11:35 | Discharge Summary ---
Providers - Providers Date of Admission: 03/29/21 10:48 Date of discharge: 04/01/21 Attending physician: SEVERO ADORNO Primary care physician: SEVERO ADORNO Hospitalization Delivery: Procedure: repeat low transverse Discharge diagnosis: IUP at term delivered Condition at discharge: Stable Disposition: 01 HOME / SELF CARE / HOMELESS Plan - Discharge Medications Prescriptions: Ibuprofen [Motrin] 800 mg PO Q8HR PRN 21 Days #40 tablet PRN Reason: Pain, Moderate (4-6) oxyCODONE /ACETAMINOPHEN [Percocet 5/325] 1 tab PO Q4HR PRN 21 Days #30 tab PRN Reason: Pain , Severe (7-10) - Provider Discharge Summary Activity: no sex for 6 weeks Diet: routine Additional instructions: [] Smoking cessation referral if applicable(refer to patient education folder for contact #) [] Refer to [facility]'s [facility] Center Booklet Call your doctor immediately for: * Fever > 100.5 * Heavy vaginal bleeding ( >1 pad per hour) * Severe persistent headache * Shortness of breath * Reddened, hot, painful area to leg or breast * Drainage or odor from incision. * Keep incision clean and dry at all times and follow doctor's instructions regarding bathing/showering - Follow up plan Follow up: SEVERO ADORNO MD [Primary Care Provider] - 7 Days
[2021-04-02] MEDS: oxyCODONE /ACETAMINOPHEN 5-325MG TAB PO PRN (05:00)
[2021-04-02 06:26] VITALS: BP 144/83
== END 2021-04-02 12:10 | disposition home or self-care (01) | DRG 787 ==
LOC: APU 10:48 → LD 20:38 → APU 03-30 10:36 → OB 03-30 13:10
PROVIDERS: ADMIT Obstetrics & Gynecology; ATTEND Obstetrics & Gynecology
PROC: 10D00Z1 Extraction of Products of Conception, Low, Open Approach (ICD-10-PCS; principal; 2021-03-30)
DX: O34.211 Maternal care for low transverse scar from previous cesarean delivery (principal); O86.20 Urinary tract infection following delivery, unspecified; O13.4 Gestational [pregnancy-induced] hypertension without significant proteinuria, complicating childbirth; Z3A.39 39 weeks gestation of pregnancy; Z37.0 Single live birth; Z20.822 Contact with and (suspected) exposure to COVID-19; O99.214 Obesity complicating childbirth; E66.01 Morbid (severe) obesity due to excess calories
CPT/HCPCS: 36415; 81001; 82565; 82570; 83615; 84156; 84450; 84460; 84550; 85014; 85018; 85027; 86850; 86900; 86901; 87076; 87086; 87186; G0378; J0630; J3490; J7121; J0690; J0696; J1100; J1885; J2270; J2405; J2765; J7120; U0003